=== PATIENT | male | born 1990 | race Caucasian/White ===

== ENCOUNTER 2017-02-21 11:46 | Emergency (ER) | payer OTHER ==
[~2017-02-21] VITALS: Ht 185.4 cm; Wt 81.8 kg
[2017-02-21 11:47] VITALS: BP 142/88
[2017-02-21] MEDS ORDERED: TESS100C PO (13:20)
[2017-02-21] MEDS ORDERED: ZOFR4TAB3 PO (13:20)
== END 2017-02-21 14:35 | disposition home or self-care (01) ==
LOC: M ED 11:46
DX: B34.9 Viral infection, unspecified (principal); R05 Cough; R11.0 Nausea; F17.210 Nicotine dependence, cigarettes, uncomplicated